=== PATIENT | female | born 1970 | race Caucasian/White ===

== ENCOUNTER 2019-10-14 14:29 | Emergency (ER) | payer OTHER ==
[2019-10-15 12:23] LABS: SARS-CoV-2 MS2 Positive; SARS-CoV-2 N Gene Negative; SARS-CoV-2 S Gene Negative; SARS-CoV-2 orf1ab Negative
== END 2019-10-14 15:00 | disposition home or self-care (01) ==
LOC: ERS 14:29
DX: Z20.828 Contact with and (suspected) exposure to other viral communicable diseases (principal); B20 Human immunodeficiency virus [HIV] disease; G35 Multiple sclerosis; F17.210 Nicotine dependence, cigarettes, uncomplicated
CPT/HCPCS: 87635; 99283; U0003

== ENCOUNTER 2024-11-02 14:16 | Outpatient (CLI) | payer BC | END 2024-11-02 14:17 | disposition home or self-care (01) | LOC: BICMAMMO 14:16 | PROVIDERS: ATTEND Nurse Practitioner Family | DX: Z12.31 Encounter for screening mammogram for malignant neoplasm of breast (principal) | CPT/HCPCS: 77063; 77067 ==

== ENCOUNTER 2024-12-02 12:04 | Emergency (ER) | payer BC ==
[2024-12-02] MEDS ORDERED: Dexamethasone 10 MG/ML VIAL ONE (12:30)
[2024-12-02] MEDS ORDERED: Ketorolac Tromethamine 30 MG (1 mL) VIAL ONE (12:30)
[2024-12-02] MEDS ORDERED: Iopamidol-370 76% 500 ML MDV (1 ML CHARGE) ONE (12:45)
[2024-12-02 12:53] LABS: Hematocrit 40.7 % (36.0-47.0); Hemoglobin 13.5 g/dL (12.0-16.0); Mean Corpuscular Hemoglobin 30.0 pg (27.0-31.0); Mean Corpuscular Volume 90.4 fL (78.0-98.0); Platelet Count 167 10x3/uL (130-400); Red Blood Cell (RBC) Count 4.50 mill/uL (4.20-5.40); White Blood Cell (WBC) Count 19.65 10x3/uL (4.8-10.8)
[2024-12-02 13:12] LABS: ALT (SGPT) 8 U/L (Less than 34); AST (SGOT) 15 U/L (11-34); Albumin 3.8 g/dL (3.1-4.5); Alkaline Phosphatase 98 U/L (40-110); Anion Gap 16 mmol/L (10-20); BUN (Urea Nitrogen) 9 mg/dL (9.8-20.1); Bilirubin, Total 1.7 mg/dL (0.3-1.2); Calc. Creatinine Clearance 0 mL/min (70-130); Calcium 9.3 mg/dL (7.8-10.44); Carbon Dioxide 21 mmol/L (22-29); Chloride 100 mmol/L (98-107); Globulin 3.9 g/dL (2.4-3.5); Glucose 121 mg/dL (70-105); Potassium 3.5 mmol/L (3.5-5.1); Sodium 133 mmol/L (136-145)
[2024-12-02] MEDS ORDERED: Benzocaine 20% Spray 60 ML CAN ONE (13:17)
[2024-12-02] MEDS ORDERED: Lidocaine 1% w/Epinephrine 1:100K 20 ML VIAL ONE (13:17)
[2024-12-02 13:18] LABS: Ovalocytes SLIGHT = 2-5 cells HPF (0-1); Platelet Adequacy Comment Platelets Normal; Schistocytes SLIGHT = 2-5 cells HPF (0-1); Smudge Cells 3.0 %; Stomatocytes SLIGHT = 2-5 cells HPF (0-1); Toxic Granulation SLIGHT
[2024-12-02] MEDS ORDERED: Glycopyrrolate 0.4 MG/ 2 ML VIAL SLOW IVP SCH (13:45)
== END 2024-12-02 16:49 | disposition short-term general hospital (02) ==
LOC: ERS 12:04
DX: J36 Peritonsillar abscess (principal); J38.4 Edema of larynx; J39.2 Other diseases of pharynx; F17.210 Nicotine dependence, cigarettes, uncomplicated; Z79.899 Other long term (current) drug therapy
CPT/HCPCS: 10160; 36415; 70491; 80053; 83605; 85025; 87040; 87070; 87077; 87149; 87205; 96365; 96375; J0295; J1100; J1885; J2250; Q9967